=== PATIENT | male | born 1965 | race Caucasian/White ===

== ENCOUNTER 2016-10-02 11:29 | Observation (INO) | payer MEDICAID, SELFPAY ==
[2016-10-02] MEDS ORDERED: NITROGLYCERINE 2 % OINTMENT PACK TOP STA (11:43)
[2016-10-02] MEDS ORDERED: NITROGLYCERINE 0.4 MG TAB SL STA (11:43)
[2016-10-02 11:46] LABS: AUTOMATED EOSINOPHIL 1.4 % (0-5); AUTOMATED LYMPH 24.7 % (17-44); AUTOMATED MONOCYTE 7.1 % (3-10); AUTOMATED NEUTROPHIL 65.8 % (45-76); MPV 7.2 fL (7.4-10.4)
--- NOTE | 2016-10-02 11:50 | EDPRACDOC ---
- General Information Chief Complaint: Chest Pain Stated Complaint: CP Time Seen by Provider: 10/02/16 11:34 Mode of Arrival: Ambulance Home Medications: Home Medications Aspirin [Aspirin EC] 81 mg PO QAM 10/02/16 Carbamazepine [Carbatrol] 300 mg PO BID 10/02/16 Escitalopram Oxalate [Lexapro] 5 mg PO DAILY 10/02/16 Hydrochlorothiazide 25 mg PO QAM 10/02/16 Lamotrigine [Lamictal] 100 mg PO BID 10/02/16 Lisinopril [Prinivil] 20 mg PO HS 10/02/16 Lovastatin 20 mg PO HS 10/02/16 Verapamil HCl [Calan] 120 mg PO HS 10/02/16 Omeprazole [Prilosec] 40 mg PO BID #60 10/03/16 Allergies/Adverse Reactions: Allergies Allergy/AdvReac Type Severity Reaction Status Date / Time divalproex sodium Allergy See Verified 10/02/16 11:55 [From Depakote] Comments morphine Allergy Nausea/Vomi Verified 10/02/16 11:56 ting phenytoin [From Dilantin] Allergy Rash-Genera Verified 10/02/16 11:55 lized - History of Present Illness Onset: 45 MIN HPI: PT PRESENTS WITH SUBSTERNAL CHEST PRESSURE RADIATING INTO HIS LEFT SHOULDER. REPORTS HAVING A CARDIAC CATH SOME YEARS AGO WHICH DID NOT REQUIRE STENTING. Chest Pain Location: Reports: Substernal Pain Radiation: Reports: Shoulder (L) Symptoms Occur: Reports: At Rest Cardiac Risk Factors: Reports: Family History, Hyperlipidemia, Hypertension. Denies: Diabetes Cardiac History of: Reports: Cardiac Cath. Denies: Stent Medications within 24 Hours: Reports: Aspirin Prehospital Care: Reports: SL NTG, ASA Pain Came On: Reports: Suddenly Pain Status: Present Now Pain Description: Reports: Pressure Pain Severity: Mild Pain Worsens With: Reports: Nothing Pain Improves With: Reports: Nitroglycerin Associated Signs and Symptoms: Denies: SOB, Abdominal Pain, Nausea, Vomiting ED Past Medical History - History Reviewed Yes Nurses notes reviewed and agree except as marked - Patient Medical History Neurological History: Reports: Cerebrovascular Accident, Seizures Cardiac History: Reports: Hypertension, Hypercholesterolemia GI/ History: Reports: Gastroesophageal Reflux Musculoskeletal History: Reports: Arthritis Systemic History: Denies: Cancer - Social Medical History Lives With: Family Lives In: Home EDM Review of Systems - Review of Systems ROS Negative Except as Marked: Yes All systems reviewed and were negative except as marked Constitutional: negative: Fever Respiratory: negative: Shortness of Breath Cardiovascular: Chest Pain Gastrointestinal: negative: Pain, Vomiting - Physical Exam Constitutional: Alert Oriented to: Time, Person, Place Last recorded Vital Signs: Last Vital Signs Temp 98.2 F 10/02/16 11:30 Pulse 95 10/02/16 11:42 Resp 18 10/02/16 11:42 BP 130/77 10/02/16 11:42 Pulse Ox 96 10/02/16 11:42 Oxygen Pulse Oxygen Saturation 96 O2 Device Oxygen Flow Rate Fraction of Inspired Oxygen ( FIO2) - HEENT Head: negative: Deformity, Laceration Eye Exam: negative: Conjunctival Injection, Pale Conjunctiva Oropharynx: negative: Membranes Dry Nose: negative: Congestion, Discharge Neck: negative: Limited ROM - Respiratory/Cardiovascular Respiratory: Normal - CTA. negative: Accessory Muscle Use, Diminished, Tachypnea Cardiovascular: negative: Bradycardia, Tachycardia, Irregular - GI Auscultation: Normal Palpation: Normal Tenderness: Non tender - Musculoskeletal Extremities: Pedal Pulse (PALPABLE), Radial Pulse (PALPABLE). negative: Calf Tenderness, Pedal Edema - Integumentary Skin: Warm, Dry. negative: Rash - Neurologic Memory Impaired: Normal Motor Function: Normal Mood Description: Anxious, Appropriate Thought: Coherent Perception: Normal ED Chest Pain Exam - Respiratory/Cardiovascular Chest Palpation: negative: Tender, Reproduces Pain - Action Patient received Aspirin within last 24 hours?: Yes ASA given in the ED: No - Results 10/02/16 11:38 10/03/16 04:25 - EKG EKG #1 EKG Time: 11:28 -: Yes EKG interpreted by me Rate: bpm: 100 Rhythm: NSR ST: Nonsp - Departure Yes I personally saw and evaluated the patient. Disposition: Admit IP To This Hospital Condition: Improved Final Diagnosis: CHEST PAIN Decision to Admit Time: 14:15 Decision to admit date: 10/02/16 Decision to admit: from ED
[2016-10-02 12:08] LABS: BLOOD UREA NITROGEN 18 MG/DL (9-20); CALCIUM 9.1 MG/DL (8.4-10.2); CALCULATED OSMOLALITY 267 MOs/Kg (270-290); CHLORIDE 101 mEq/L (98-107); GLUCOSE 125 MG/DL (70-99); SODIUM LEVEL 137 mEq/L (137-146); TOTAL PROTEIN 7.4 G/DL (6.3-8.2)
--- NOTE | 2016-10-02 12:24 | DIRPT ---
CLINICAL DATA: Left-sided chest pain radiating into the left arm. Shortness of breath beginning today. EXAM: CHEST 2 VIEW COMPARISON: PA and lateral chest 07/17/2015. FINDINGS: The lungs are clear. Heart size is normal. No pneumothorax or pleural effusion. Ventriculostomy shunt catheter on the right is unchanged in appearance. IMPRESSION: No acute disease. Electronically Signed By: Gilles Johnson M.D. On: 10/02/2016 12:21
[2016-10-02] MEDS ORDERED: ACETAMINOPHEN 325 MG/TAB TABLET PO ONE (13:58)
[2016-10-02] MEDS ORDERED: ZOLPIDEM TARTRATE 5 MG TAB PO PRN (14:27)
[2016-10-02] MEDS ORDERED: BENZONATATE 100 MG PERLES PO PRN (14:27)
[2016-10-02] MEDS ORDERED: ONDANSETRON HCL 4 MG/2 ML VIAL IV PRN (14:27)
[2016-10-02] MEDS ORDERED: ACETAMINOPHEN 325 MG/TAB TABLET PO PRN (14:27)
[2016-10-02] MEDS ORDERED: MAGNESIUM HYDROXIDE 30 ML BOTTLE PO PRN (14:27)
[2016-10-02] MEDS ORDERED: Docusate Sodium 100 MG CAP PO PRN (14:27)
[2016-10-02] MEDS ORDERED: GUAIFENESIN 200 MG/10 ML UDC PO PRN (14:27)
[2016-10-02] MEDS ORDERED: NITROGLYCERINE 0.4 MG TAB SL PRN (14:27)
--- NOTE | 2016-10-02 14:27 | HISTPHYS ---
- Chief Complaint chest pain - History of Present Illness Mr. Blanton is a 51-year-old white male with history of hypertension, hyperlipidemia, and seizure disorder who presents to the emergency room with complaint of left-sided chest pain. He points to the center of his chest and states the pain radiates up to his left shoulder and down his left arm. He has had some numbness and tingling in his finger tips he denies nausea or vomiting. He did feel little bit short of breath. His father had heart disease and of an [place] at age 64. Initial EKG in the emergency rooms within normal limits but given his history he will be admitted to the hospital for further evaluation management of chest pain. - Medical History Cardiac History: Reports: Hypertension, Hypercholesterolemia Respiratory History: Reports: No Significant History GI/ History: Reports: Gastroesophageal Reflux Musculoskeletal History: Reports: Arthritis Systemic History: Denies: Cancer Neurological History: Reports: Cerebrovascular Accident, Seizures - Surgical History Reports: No Significant History - Medictions/Allergies Allergies divalproex sodium [From Depakote] Allergy (Verified 10/02/16 11:55) See Comments MEMORY LOSS morphine Allergy (Verified 10/02/16 11:56) Nausea/Vomiting phenytoin [From Dilantin] Allergy (Verified 10/02/16 11:55) Rash-Generalized Current Medication List: Reviewed Home Medications Aspirin [Aspirin EC] 81 mg PO QAM 10/02/16 Carbamazepine [Carbatrol] 300 mg PO BID 10/02/16 Escitalopram Oxalate [Lexapro] 5 mg PO DAILY 10/02/16 Hydrochlorothiazide 25 mg PO QAM 10/02/16 Lamotrigine [Lamictal] 100 mg PO BID 10/02/16 Lisinopril [Prinivil] 20 mg PO HS 10/02/16 Lovastatin 20 mg PO HS 10/02/16 Omeprazole [Prilosec] 40 mg PO HS 10/02/16 Verapamil HCl [Calan] 120 mg PO HS 10/02/16 - Family History Reports: Hypertension, Cardiac Disorders - Social History Travel Outside of [place] in the Last 3 Months?: No Lives: with Spouse Smoking Status: Never smoker Social History: Denies: Alcohol Use - Review of Systems Yes Review of systems cannot be obtained due to the patient's medical condition Constitutional: Fatigue, Weakness. negative: Fever - Eyes No Symptoms Reported. negative: Blurred Vision, Double Vision, Pain, Photophobia - Ears No Symptoms Reported. negative: Drainage, Hearing Loss, Pain - Nose No Symptoms Reported. negative: Abrasion, Bleeding, Congestion - Mouth Mouth: No Symptoms Reported. negative: Pain, Drooling, Denture, Denture Pain - Throat/Neck No Symptoms Reported. negative: Pain, Swelling, Hoarseness, Snoring - Respiratory No Symptoms Reported. negative: Cough, Shortness of Breath, Wheezing, Sputum - Cardiovascular Chest Pain. negative: Cyanosis, Orthopnea, Palpitations, PND - Gastrointestinal Gastrointestinal: No Symptoms Reported. negative: Nausea, Vomiting, Abdominal Pain - Genitourinary Genitourinary: No Symptoms Reported. negative: Bleeding, Dysuria, Discharge - Neurological Seizure (History, but stable currently) - Musculoskeletal Musculoskeletal:: No Symptoms Reported. negative: Arthritis, Stiffness, Weakness - Integumentary No Symptoms Reported. negative: Bruising, Rash, Wound - Allergic/Immunologic No Symptoms Reported. negative: Hives, Itching - Hematologic No Symptoms Reported. negative: Lymphadenopathy, Easy Bleeding - Endocrine No Symptoms Reported. negative: Weight Gain, Weight Loss, Excessive Thirst, Heat Intolerance, Cold Intolerance - Psychiatric No Symptoms Reported. negative: Anxiety, Hallucinations - Physical Exam Constitutional: Alert, Well nourished, Well appearing Oriented to: Time, Person, Place Exam: Last Vital Signs Temp 98.2 F 10/02/16 11:30 Pulse 100 10/02/16 13:38 Resp 20 10/02/16 13:38 BP 125/81 10/02/16 13:38 Pulse Ox 95 10/02/16 13:38 Intake & Output 10/01/16 10/02/16 10/02/16 23:59 07:59 15:59 Patient's weight 99.337 kg - HEENT Head: Normal. negative: Deformity, Laceration Eye: Normal. negative: Conjunctival Injection, Pale Conjunctiva Oropharynx: Normal. negative: Membranes Dry Nose: negative: Congestion, Discharge - Respiratory/Cardiovascular Respiratory: Normal - CTA. negative: Accessory Muscle Use, Diminished, Tachypnea, Wheezes Cardiovascular: Normal - GI Auscultation: Normal Palpation: Normal Tenderness: Non tender - Musculoskeletal Back: Normal. negative: Abrasion, Laceration Extremities: Normal, Pedal Pulse (PALPABLE), Radial Pulse (PALPABLE). negative : Calf Tenderness, Edema, Pedal Edema - Integumentary Skin: Warm, Dry. negative: Rash Lymphatics: Normal. negative: Adenopathy - Neurologic Memory Impaired: Normal Motor Function: Normal Cranial Nerve: Normal Cerebellar: Normal Mood Description: Anxious, Appropriate Thought: Coherent Perception: Normal - Focused CV Perfusion Exam Vital Signs: Last Vital Signs Temp 98.2 F 10/02/16 11:30 Pulse 100 10/02/16 13:38 Resp 20 10/02/16 13:38 BP 125/81 10/02/16 13:38 Pulse Ox 95 10/02/16 13:38 - Lab Results Laboratory Results - last 24 hr 10/02/16 10/02/16 10/02/16 11:38 11:38 11:38 WBC 8.6 RBC 4.96 Hgb 15.0 Hct 42.7 MCV 86 MCH 30.3 MCHC 35.2 RDW 12.9 Plt Count 292 MPV 7.2 L Neut % (Auto) 65.8 Lymph % (Auto) 24.7 [place] % (Auto) 7.1 Eos % (Auto) 1.4 Baso % (Auto) 1.0 Absolute Neuts (auto) 5.59 Absolute Lymphs (auto) 2.06 PT 10.2 INR 1.0 APTT 21.0 L Sodium 137 Potassium 3.8 Chloride 101 Carbon Dioxide 24 Anion Gap 16 BUN 18 Creatinine 0.80 Estimated GFR (MDRD) > 60 Glucose 125 H Calculated Osmolality 267 L Calcium 9.1 Total Bilirubin 0.6 AST 33 ALT 47 Alkaline Phosphatase 58 Troponin I < 0.01 Ckh-[id number] Pept 58 Total Protein 7.4 Albumin 4.3 - Assessment (1) Chest pain R07.9 - CHEST PAIN, UNSPECIFIED Acute Present on Admission: Yes Qualifiers: Chest pain type: unspecified Qualified Code(s): R07.9 - Chest pain, unspecified Concerning for cardiac etiology. Admit chest pain center protocol. Serial cardiac enzymes. Aspirin, nitroglycerin. Stress test in a.m. if rules out. Continue other home medications (2) Hypertension I10 - ESSENTIAL (PRIMARY) HYPERTENSION Acute Present on Admission: Yes Qualifiers: Hypertension type: essential hypertension Qualified Code(s): I10 - Essential (primary) hypertension Blood pressures stable currently. Continue medications and monitor. (3) Hyperlipidemia E78.5 - HYPERLIPIDEMIA, UNSPECIFIED Acute Present on Admission: Yes Qualifiers: Hyperlipidemia type: pure hypercholesterolemia Qualified Code(s): E78.00 - Pure hypercholesterolemia, unspecified; E78.0 - Pure hypercholesterolemia Continue medications and monitor. (4) GERD (gastroesophageal reflux disease) K21.9 - GASTRO-ESOPHAGEAL REFLUX DISEASE WITHOUT ESOPHAGITIS Acute Present on Admission: Yes Qualifiers: Esophagitis presence: without esophagitis Qualified Code(s): K21.9 - Gastro -esophageal reflux disease without esophagitis Possible source of symptoms. Change to Protonix twice daily. Case Care Discussed with: Patient, Nursing Staff, Resource Management
[2016-10-02] MEDS ORDERED: ONDANSETRON HCL 4 MG/2 ML VIAL IV ONE (14:37)
[2016-10-02] MEDS ORDERED: Pharmacy Order Set Alert SCH (15:00)
[2016-10-02] MEDS: ASPIRIN (CHEWABLE) 81 MG TAB PO SCH (15:41)
[2016-10-02] MEDS ORDERED: MORPHINE 2 MG/ML INJECTION IV ONE (17:00)
[2016-10-02] MEDS ORDERED: Vaccine Screening Complete SCH (17:00)
[2016-10-02] MEDS: NITROGLYCERINE 2 % OINTMENT PACK TOP SCH (17:50)
[2016-10-02] MEDS ORDERED: ENOXAPARIN 60 MG/0.6 ML PFS SQ SCH (18:00)
[2016-10-02] MEDS: PANTOPRAZOLE 40 MG TAB PO SCH (18:40)
[2016-10-02] MEDS ORDERED: ESCITALOPRAM OXALATE 10 MG TAB PO SCH (21:00)
[2016-10-02] MEDS: LAMOTRIGINE 100 MG TAB PO SCH (21:00)
[2016-10-02] MEDS: CARBAMAZEPINE 300 MG PO SCH (21:00)
[2016-10-02] MEDS ORDERED: VERAPAMIL 40 MG TAB PO SCH (21:00)
[2016-10-02] MEDS ORDERED: VERAPAMIL HCL 120 MG PO SCH (21:00)
[2016-10-02] MEDS ORDERED: PRAVASTATIN 20 MG TAB PO SCH (21:00)
[2016-10-02] MEDS ORDERED: LOVASTATIN 20 MG PO SCH (21:00)
[2016-10-02] MEDS ORDERED: LISINOPRIL 20 MG TAB PO SCH (21:00)
[2016-10-03 03:50] VITALS: BMI 34.3
[2016-10-03] MEDS: PANTOPRAZOLE 40 MG TAB PO SCH (05:03)
[2016-10-03] MEDS: NITROGLYCERINE 2 % OINTMENT PACK TOP SCH ×2 (05:03→11:33)
[2016-10-03 05:10] LABS: LDL (calc.) 86.6 MG/DL (<100); VLDL (calc.) 39.4 MG/DL (5-40)
[2016-10-03] MEDS ORDERED: FLU VACCINE (Afluria) 0.5 ML DOSE IM ONE (08:00)
[2016-10-03] MEDS ORDERED: HYDROCHLOROTHIAZIDE 25 MG TAB PO SCH (09:00)
[2016-10-03] MEDS ORDERED: SODIUM CHLORIDE 0.9% 10 ML FLUSH FLUSH ONE (09:00)
[2016-10-03] MEDS ORDERED: ESCITALOPRAM OXALATE 5 MG PO SCH (09:00)
[2016-10-03] MEDS ORDERED: REGADENOSON 0.4 MG/5 ML SYRINGE IV ONE (09:00)
[2016-10-03] MEDS: CARBAMAZEPINE 300 MG PO SCH (11:32)
[2016-10-03] MEDS: ASPIRIN (CHEWABLE) 81 MG TAB PO SCH (11:32)
[2016-10-03] MEDS: LAMOTRIGINE 100 MG TAB PO SCH (11:32)
[2016-10-03] MEDS ORDERED: SESTAMIBI 8 MCI V IV ONE (12:01)
[2016-10-03 12:20] VITALS: BP 118/66; TEMP 97.6
[2016-10-03 13:05] VITALS: PULSE 101
--- NOTE | 2016-10-03 15:18 | PCM.DCS92 ---
- Final/Secondary Discharge Diagnosis (1) Chest pain Acute R07.9 - CHEST PAIN, UNSPECIFIED Present on Admission: Yes unspecified R07.9 - Chest pain, unspecified Comment: Concerning for cardiac etiology. Admit chest pain center protocol. Serial cardiac enzymes. Aspirin, nitroglycerin. Stress test in a.m. if rules out. Continue other home medications (2) GERD (gastroesophageal reflux disease) Acute K21.9 - GASTRO-ESOPHAGEAL REFLUX DISEASE WITHOUT ESOPHAGITIS Present on Admission: Yes without esophagitis K21.9 - Gastro-esophageal reflux disease without esophagitis Comment: Possible source of symptoms. Change to Protonix twice daily. (3) Hyperlipidemia Acute E78.5 - HYPERLIPIDEMIA, UNSPECIFIED Present on Admission: Yes pure hypercholesterolemia E78.00 - Pure hypercholesterolemia, unspecified; E78.0 - Pure hypercholesterolemia Comment: Continue medications and monitor. (4) Hypertension Acute I10 - ESSENTIAL (PRIMARY) HYPERTENSION Present on Admission: Yes essential hypertension I10 - Essential (primary) hypertension Comment: Blood pressures stable currently. Continue medications and monitor. Discharge Disposition: Home Discharge Condition: Improved Cognitive Discharge Status: Unimpaired Fuctional Discharge Status: Independent Physician Follow up/Referrals: None,No Provider [Family Provider] - Listed Time (Follow-up [facility] within the next 2 weeks and discuss further measures as.) Discharge Home Medication List Aspirin [Aspirin EC] 81 mg PO QAM 10/02/16 [History Confirmed 10/02/16 Last Taken 10/02/16 4 TABS] Carbamazepine [Carbatrol] 300 mg PO BID 10/02/16 [History Confirmed 10/02/16 Last Taken 10/02/16] Escitalopram Oxalate [Lexapro] 5 mg PO DAILY 10/02/16 [History Confirmed Last Taken 10/01/16] Hydrochlorothiazide 25 mg PO QAM 10/02/16 [History Confirmed 10/02/16 Last Taken 10/02/16] Lamotrigine [Lamictal] 100 mg PO BID 10/02/16 [History Confirmed 10/02/16 Last Taken 10/02/16] Lisinopril [Prinivil] 20 mg PO HS 10/02/16 [History Confirmed 10/02/16 Last Taken 10/01/16] Lovastatin 20 mg PO HS 10/02/16 [History Confirmed 10/02/16 Last Taken 10/01/16] Verapamil HCl [Calan] 120 mg PO HS 10/02/16 [History Confirmed 10/02/16 Last Taken 10/01/16] Omeprazole [Prilosec] 40 mg PO BID #60 10/03/16 [Rx Confirmed 10/02/16 Last Taken 10/01/16] O2 Device: Room Air Diet at Discharge: As Tolerated Activity: As Tolerated Discontinue use of:: Alcohol, All Types of Tobacco - DC Summary Notes Hospital Course Note:: Discharge summary on patient named GILLES NOLAN [facility] by Gilles De La Cruz MD. Date of discharge is 10/03/2016 by ok. Patient is a 51-year-old white male admitted with chest pain yesterday who had a negative nuclear stress test today with a history of GERD. His ejection fraction was normal and troponin EKG chest x-ray were negative. He is advised to take the omeprazole twice a day until he follows up with primary care provider at the [facility]. CC: [facility] Total Time: 36 min Code: 54654 - Physical Exam Vital Signs: Last Vital Signs Temp 97.6 F 10/03/16 12:17 Pulse 101 10/03/16 13:04 Resp 18 10/03/16 12:17 BP 118/66 10/03/16 12:17 Pulse Ox 95 10/03/16 12:17 Oxygen Pulse Oxygen Saturation 95 O2 Device Room Air Oxygen Flow Rate Fraction of Inspired Oxygen ( FIO2) Constitutional: Alert, Well nourished, Well appearing Oriented to: Time, Person, Place - HEENT Head: Normal. negative: Deformity, Laceration Eye: Normal. negative: Conjunctival Injection, Pale Conjunctiva Oropharynx: Normal. negative: Membranes Dry ENT EAC: Normal (No oropharyngeal lesions or erythema. Mucous membranes are dry. ) TMJ: Normal Nose: negative: Congestion, Discharge - Respiratory/Cardiovascular Respiratory: Normal - CTA. negative: Accessory Muscle Use, Diminished, Tachypnea, Wheezes Cardiovascular: Normal - GI Auscultation: Normal Palpation: Normal Tenderness: Non tender - Musculoskeletal Back: Normal. negative: Abrasion, Laceration Extremities: Normal, Pedal Pulse (PALPABLE), Radial Pulse (PALPABLE). negative : Calf Tenderness, Edema, Pedal Edema - Integumentary Skin: Warm, Dry. negative: Rash Lymphatics: Normal. negative: Adenopathy - Neurologic Memory Impaired: Normal Motor Function: Normal (Motor 5/5 throughout.Normal tone, Pulses 2+ No cyanosis or edema, FROM) Cranial Nerve: Normal (CN II-XII intact sensation, strength 5/5) Cerebellar: Normal Mood Description: Anxious, Appropriate Thought: Coherent Perception: Normal
--- NOTE | 2016-10-03 17:05 | CAPUEKG ---
[place], [place] Test Date: 2016-10-03 Pat Name: JO ANN NOALN Department: Room: 432 Gender: Male Ad Operations Specialist: : Requested By: Order Number: Reading MD: Bharat Samuels Measurements Intervals [place] Rate: 83 P: 46 NE: 130 QRS: 31 QRSD: 82 T: 60 QT: 372 QTc: 437 Interpretive Statements Normal sinus rhythm Normal ECG Electronically Signed On 10-03-16 17:04:26 EST by Bharat Samuels <[id number]> [id number]
--- NOTE | 2016-10-03 18:38 | CAPUCARD ---
EXERCISE STRESS CARDIOLITE REST STRESS SCAN IDENTIFICATION: A 51-year-old male. REFERRING DOCTOR: Gilles De La Cruz MD INDICATION: Chest pain. This is exercise stress Cardiolite rest stress scan. The patient's baseline EKG reveals sinus rhythm, nonspecific ST-T changes, resting heart rate of 87, blood pressure 124/88 millimeters of mercury. The patient exercised for 3 minutes on standard John protocol, achieved 86% predicted maximal heart rate with 5 METs of exercise. Test terminated because of dyspnea. No chest pain occurred. There were nondiagnostic EKG changes and no arrhythmias. Cardiolite images do not reveal any evidence of ischemia. Soft tissue attenuation of the inferior segments of the left ventricle seen. Ejection fraction calculated at 65%. IMPRESSION: 1. No evidence of ischemia on the study. 2. Normal ejection fraction. 3. Fair exercise capacity. 4. No significant symptoms, EKG changes, or arrhythmias occurred. [id number]
[2016-10-04] MEDS ORDERED: REMOVE NITROGLYCERIN PASTE MAR ALERT SCH
== END 2016-10-03 17:00 | disposition home or self-care (01) ==
LOC: ED 11:29 → PCU 14:27
PROVIDERS: ADMIT Hospitalist; ATTEND Internal Medicine
DX: R07.9 Chest pain, unspecified (principal); I10 Essential (primary) hypertension; K21.9 Gastro-esophageal reflux disease without esophagitis; E78.5 Hyperlipidemia, unspecified; Z86.73 Personal history of transient ischemic attack (TIA), and cerebral infarction without residual deficits; Z79.82 Long term (current) use of aspirin; Z79.899 Other long term (current) drug therapy; Z23 Encounter for immunization
CPT/HCPCS: 36415; 71020; 78452; 80053; 80061; 82947; 83880; 84484; 85025; 85610; 85730; 90471; 90656; 93005; 93017; 96372; 99285; A9500; G0378; J1650; J2270; J2405; J3490; A4216; J2785